=== PATIENT | female | born 2000 | race African-American/Black ===

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

== ENCOUNTER 2020-02-19 09:15 | Emergency (ER) | payer OTHER, BC ==
[~2020-02-19] VITALS: Ht 162.6 cm; Wt 59.0 kg
[2020-02-19] MEDS ORDERED: FLEXERIL PO (10:00)
[2020-02-19] MEDS ORDERED: NORCO 5-325 TA1 EAC2 PO (10:00)
[2020-02-19 10:52] VITALS: BP 119/84
== END 2020-02-19 10:53 | disposition home or self-care (01) ==
LOC: M.ERS 09:15
DX: S16.1XXA Strain of muscle, fascia and tendon at neck level, initial encounter (principal); V89.2XXA Person injured in unspecified motor-vehicle accident, traffic, initial encounter; Y93.89 Activity, other specified; Y92.89 Other specified places as the place of occurrence of the external cause; Y99.8 Other external cause status

== ENCOUNTER 2020-02-29 01:25 | Emergency (ER) | payer BC ==
[~2020-02-29] VITALS: Ht 154.9 cm; Wt 52.6 kg
[~2020-02-29 01:25] MED LIST: FLEXERIL PO; NORCO 5-325 TA1 EAC2 PO
[2020-02-29 03:08] VITALS: BP 125/77
== END 2020-02-29 03:09 | disposition home or self-care (01) ==
LOC: M.ERS 01:25
DX: K59.00 Constipation, unspecified (principal)

== ENCOUNTER 2020-07-18 04:53 | Emergency (ER) | payer BC ==
[~2020-07-18] VITALS: Ht 154.9 cm; Wt 52.6 kg
[2020-07-18 05:03] VITALS: BP 130/74
[2020-07-18] MEDS ORDERED: BACLOFEN 10MG T10 MG PO (05:27)
[2020-07-18] MEDS ORDERED: FLEXERIL PO (05:27)
== END 2020-07-18 05:20 | disposition home or self-care (01) ==
LOC: M.ERS 04:53
DX: M54.5 Low back pain (principal)

== ENCOUNTER 2020-09-11 23:23 | Emergency (ER) | payer BC ==
[~2020-09-11] VITALS: Ht 154.9 cm; Wt 52.6 kg
[~2020-09-11 23:23] MED LIST changes: +BACLOFEN 10MG T10 MG PO
[2020-09-11 23:48] VITALS: BP 108/67
== END 2020-09-11 23:48 | disposition home or self-care (01) ==
LOC: M.ERS 23:23
DX: R51.9 Headache, unspecified (principal)

== ENCOUNTER 2021-02-08 20:15 | Emergency (ER) | payer BC ==
[~2021-02-08] VITALS: Ht 154.9 cm; Wt 52.6 kg
[2021-02-08 20:59] VITALS: BP 127/73
== END 2021-02-08 21:19 | disposition home or self-care (01) ==
LOC: M.ERS 20:15
DX: Z04.89 Encounter for examination and observation for other specified reasons (principal)